=== PATIENT | male | born 1960 | race Caucasian/White ===

== ENCOUNTER → 2017-04-21 | Outpatient (CLI) | payer MEDICARE, MEDICAID ==
[~2017-04-21] MED LIST: A REDS OP; AMBIEN DPS10 MG PO; ASA325 MG PO; CLARITIN10 M2 PO; CORTISPORIN CR7.5 GM; CYMBALTA60 MG PO; EYELEA; FLOMAX DPS0.4 MG PO; IRON325 M1 PO; KEFLEX-DPS500 MG PO; LAMICTAL DPS100 MG PO; NORCO 5-325 TA1 EACH PO; PRILOSEC DPS20 MG PO; THERA1 EACH PO; VITAMIN D50000 UNIT PO; ZANTAC DPS150 MG PO; ZOCOR DPS40 MG PO; ZYLOPRIM-DPS300 MG PO
== END | disposition home or self-care (01) ==
LOC: RAD.S 06:54
PROC: 3E0S3BZ Introduction of Anesthetic Agent into Epidural Space, Percutaneous Approach (ICD-10-PCS; principal; 2017-04-21)
PROC: 3E0S33Z Introduction of Anti-inflammatory into Epidural Space, Percutaneous Approach (ICD-10-PCS; principal; 2017-04-21)
DX: M48.02 Spinal stenosis, cervical region (principal)